=== PATIENT | female | born 1975 | race Caucasian/White ===

== ENCOUNTER → 2017-05-28 | Day surgery (SDC) | payer OTHER ==
[~2017-05-28] VITALS: Ht 157.5 cm; Wt 85.3 kg
[~2017-05-28] MED LIST: MELATONIN3 M4 PO; NIFEDIPINE ER30 M1 PO
--- NOTE | 2017-05-28 16:21 | ULTRASOUND REPORT ---
EXAMINATION: US INTRAOPERATIVE GUIDANCE CLINICAL INFORMATION: Cryoablation in OR for menometrorrhagia. COMPARISON: None TECHNIQUE/FINDINGS: Ultrasound guidance was provided in the operating room for cryoablation procedure. 10 images were taken and are archived in PACS. These demonstrate a linear echogenic instrument within the endometrial cavity of the uterus, extending to the uterine fundus. Please refer to operative notes. IMPRESSION: Administrative dictation for intraoperative ultrasound guidance and image archiving. Please refer to operative notes for details of the procedure.
--- NOTE | 2017-05-29 17:23 | Operative Report ---
Operative/Inv Procedure Report Surgery Date: 05/28/17 Name of Procedure: D&C cryoablation the uterus under ultrasound guidance Pre-Operative Diagnosis: Metromenorrhagia Post-Operative Diagnosis: Same Estimated Blood Loss: 50ml to 100ml Surgeon/Power Transmission Engineer: INEZ PIERSON MD Anesthesia: moderate sedation Operative/Procedure Note Note: Procedure patient was seen the operating and placed on position after adequate anesthesia patient placed in dorsolithotomy position the vagina from dorsal fashion at this point the bladder was catheterized a examination under anesthesia performed I a andujar speculum was placed into the vagina single-tooth tenaculum was placed in on the anterior lip of the cervix cervix is dilated 29 Hegar to allow for the insertion of sharp curet sharp curettage endometrial lining performed sharp curettage and cervical lining was performed using [place] correct the patient tolerated that well on at this point the cryoprobe was inserted under ultrasound guidance at the bladder had been filled and possibly 8 minutes on each size and nice ice ball was performed at this point the probe was heated and removed on since removed from the vagina of the [place] was removed the bladder the patient was returned spine position she was awakened from anesthesia and transferred recovery room awake and alert with counts correct
== END ==
LOC: STS 02:07
DX: N92.1 Excessive and frequent menstruation with irregular cycle (principal); N71.9 Inflammatory disease of uterus, unspecified; I10 Essential (primary) hypertension; M32.9 Systemic lupus erythematosus, unspecified; I73.00 Raynaud's syndrome without gangrene
CPT/HCPCS: 76998; 81025; 88305; J1100; J1885; J2250; J2405